=== PATIENT | female | born 1995 | race Caucasian/White ===

== ENCOUNTER → 2021-02-28 | Outpatient (REF) | payer OTHER ==
[2021-02-28 13:45] LABS: ALBUMIN 4.1 GM/DL (3.2-5.2); ALT/SGPT 41 U/L (12-78); BILIRUBIN,TOTAL 0.4 MG/DL (0.2-1.0); BLOOD UREA NITROGEN 12 MG/DL (7-18); CALCIUM LEVEL 9.4 MG/DL (8.5-10.1); CARBON DIOXIDE LEVEL 27 MEQ/L (21-32); CHLORIDE LEVEL 105 MEQ/L (98-107); CREATININE FOR GFR 0.52 MG/DL (0.55-1.30); FREE T4 0.91 NG/DL (0.76-1.46); GLOMERULAR FILTRATION RATE > 60.0 (>60); GLUCOSE, FASTING 96 MG/DL (70-100); POTASSIUM SERUM 4.4 MEQ/L (3.5-5.1); SODIUM LEVEL 140 MEQ/L (136-145); TOTAL PROTEIN 7.8 GM/DL (6.4-8.2)
== END ==
LOC: M SFHCADAM 11:19
PROVIDERS: ATTEND Family Medicine
DX: E03.9 Hypothyroidism, unspecified (principal)

== ENCOUNTER → 2021-03-20 | Outpatient (CLI) | payer OTHER ==
--- NOTE | 2021-03-20 13:35 | REP ---
INDICATION: HYPOTHYROIDISM. COMPARISON: None. TECHNIQUE: Thyroid ultrasound FINDINGS: The right lobe of the thyroid gland measures 6.4 x 3 x 2.5 cm and the left lobe measures 5.7 x 2.7 x 2.2 cm. The isthmus measures 8 mm. The thyroid parenchymal echo part is markedly heterogenous, however, there are no discrete masses. IMPRESSION: Markedly heterogenous thyroid parenchyma without evidence of a discrete or measurable mass. <Electronically signed by Mina Solorzano > 03/20/21 [id number]
== END ==
LOC: M RAD 12:52
PROVIDERS: ATTEND Family Medicine
DX: E03.9 Hypothyroidism, unspecified (principal)

== ENCOUNTER → 2021-07-29 | Outpatient (REF) | payer OTHER | LOC: M PLALAB 15:41 | PROVIDERS: ATTEND Obstetrics & Gynecology | DX: N92.6 Irregular menstruation, unspecified (principal); Z01.419 Encounter for gynecological examination (general) (routine) without abnormal findings; Z12.4 Encounter for screening for malignant neoplasm of cervix; Z77.9 Other contact with and (suspected) exposures hazardous to health ==

== ENCOUNTER → 2021-08-01 | Outpatient (CLI) | payer OTHER ==
--- NOTE | 2021-08-02 05:43 | REP ---
INDICATION: IRREGULAR MENSES COMPARISON: None. TECHNIQUE: Transabdominal pelvic ultrasound followed by transvaginal examination for better evaluation of the endometrium and adnexa with color Doppler evaluation of the ovaries. FINDINGS: Bladder is unremarkable and measures 14.1 x 11.2 x 8.4 cm. Normal anteverted uterus deviated to the right hemipelvis measures 7.8 x 4.3 x 2.8 cm. The endometrial complex measures 6.5 mm thickness. No discrete uterine or endometrial abnormalities are appreciated. Bilateral ovaries are normal in appearance and vascularity without evidence for torsion. Right ovary measures 4.5 x 3.4 x 2.3 cm; R I = 0.55. Left ovary measures 2.4 x 1.5 x 1.1 cm; R I = 0.58. No pelvic fluid or adnexal mass lesion. IMPRESSION: Normal pelvic ultrasound. <Electronically signed by Vasyl Aguiar > 08/02/21 [id number]
== END ==
LOC: M WHC 14:19
PROVIDERS: ATTEND Obstetrics & Gynecology
DX: N92.6 Irregular menstruation, unspecified (principal)

== ENCOUNTER → 2021-10-30 | Outpatient (CLI) | payer OTHER ==
[2021-10-30 17:55] LABS: HCG, SERUM QUANTITATIVE < 1.0 MIU/ML
[2021-10-30 18:03] LABS: FOLLICLE STIMULATING HORMONE 7.3 mIU/mL
== END ==
LOC: M PLALAB 15:17
PROVIDERS: ATTEND Obstetrics & Gynecology
DX: N92.6 Irregular menstruation, unspecified (principal)

== ENCOUNTER 2021-11-29 15:36 | Emergency (ER) | payer OTHER ==
[~2021-11-29] VITALS: Ht 162.6 cm; Wt 100.0 kg
[2021-11-29 15:38] VITALS: BP 128/78
== END 2021-11-29 18:04 | disposition left against medical advice (07) ==
LOC: M ED 15:36
DX: Z53.21 Procedure and treatment not carried out due to patient leaving prior to being seen by health care provider (principal)